=== PATIENT | female | born 1995 ===

== ENCOUNTER 2017-11-28 08:06 | Emergency (ER) | payer OTHER ==
[2017-11-28 08:17] VITALS: RESP 18; TEMP 98
[2017-11-28] MEDS ORDERED: Albuterol-Ipratrop 3 mg / 0.5 (3 ml) UD IH STA ×2 (08:42→09:56)
[2017-11-28] MEDS ORDERED: guaiFENesin 200 mg/10 ml Syrup UD PO PRN (08:42)
--- NOTE | 2017-11-28 08:52 | ED PDOC ---
Arrival/HPI - History of Present Illness Time/Duration: < week Symptom Onset: Sudden Symptom Course: Unchanged Activities at Onset: Rest <Roger Colon - Last Filed: 11/28/17 17:11> <Bryan Hartmann - Last Filed: 11/28/17 17:52> - General Chief Complaint: Cough, Cold, Congestion Time Seen by Provider: 11/28/17 08:08 - History of Present Illness Narrative History of Present Illness (Text): 11/28/17 08:45 PGY-[address] Hartmann Miss Bart Hudson is a 22 year old female with PMHx asthma who presents to ED with shortness of breath and cough. Patient has been experiencing symptoms for about 3 days and her shortness of breath has been getting worse. In addition to shortness of breath, the patient is having some mild chest pain and productive cough with yellow/green mucous. Typically she experiences symptoms of asthma infrequently, about once per month, for which she uses a rescue albuterol inhaler. She did use her inhaler yesterday which provided limited relief of her symptoms, and she did not have her inhaler with her to use today. The patient has not experienced any fevers or chills. Her symptoms are exacerbated by physical activity and are worse at night and lying flat. She denies any radiation of chest pain to arm or jaw. Pt does not smoke. Pt denies headache, dizziness, abdominal pain, nausea, vomiting. (Roger Colon) Past Medical History - Provider Review Nursing Documentation Reviewed: Yes - Pulmonary Hx Asthma: Yes - Psychiatric Hx Substance Use: No - Surgical History Hx Section: Yes (x1) Hx Tonsillectomy: Yes <Roger Colon - Last Filed: 11/28/17 17:11> Family/Social History - Physician Review Nursing Documentation Reviewed: Yes Family/Social History: No Known Family HX Smoking Status: Never Smoked Hx Alcohol Use: Yes Frequency of alcohol use: Socially Hx Substance Use: No <Roger Colon - Last Filed: 11/28/17 17:11> Allergies/Home Meds <Roger Colon - Last Filed: 11/28/17 17:11> <Bryan Hartmann - Last Filed: 11/28/17 17:52> Allergies/Adverse Reactions: Allergies No Known Allergies Allergy (Verified 11/28/17 08:14) Review of Systems - Physician Review All systems were reviewed & negative as marked: Yes - Review of Systems Constitutional: Normal. absent: Fatigue, Fevers Eyes: Normal. absent: Vision Changes, Photophobia ENT: Rhinorrhea. absent: Sore Throat, Sinus Congestion Respiratory: SOB, Cough, Sputum (+cough with green/yellow sputum) Cardiovascular: Chest Pain (+chest pain a/w cough) Gastrointestinal: Normal. absent: Abdominal Pain, Constipation, Diarrhea, Nausea, Vomiting Musculoskeletal: Normal. absent: Arthralgias, Back Pain Skin: Normal. absent: Rash, Pruritis Neurological: Normal. absent: Headache, Dizziness Psychiatric: Normal. absent: Anxiety, Depression <Roger Colon - Last Filed: 11/28/17 17:11> Physical Exam Vital Signs Reviewed: Yes Temperature: Afebrile Blood Pressure: Normal Pulse: Regular Respiratory Rate: Normal Appearance: Positive for: Well-Appearing. No: Non-Toxic Pain Distress: Mild Mental Status: Positive for: Alert and Oriented X 3 - Systems Exam Head: Present: Atraumatic, Normocephalic Pupils: Present: PERRL Extroacular Muscles: Present: EOMI. No: Gaze Palsy Conjunctiva: Present: Normal. No: Injected, Icteric Mouth: Present: Moist Mucous Membranes, Normal Lips, Normal Tounge, Normal Teeth. No: Dry, Drooling Pharnyx: Present: Normal. No: ERYTHEMA, EXUDATE, TONSILS ENLARGED, Peritonsilar Swelling, Uvular Deviation, Soft Palate/Uvular Edema Nose (External): Present: Atraumatic. No: Abrasion, Contusion Neck: Present: Normal Range of Motion. No: JVD Respiratory/Chest: Present: Clear to Auscultation, Decreased Breath Sounds. No : Respiratory Distress, Accessory Muscle Use, Wheezes, Rhonchi Cardiovascular: Present: Regular Rate and Rhythm, Normal S1, S2, Peripheal Pulses Present. No: Murmurs, Tachycardic Abdomen: Present: Tenderness, Normal Bowel Sounds. No: Distention, Rebound, Guarding Upper Extremity: Present: Normal Inspection, Normal ROM, NORMAL PULSES. No: Cyanosis, Edema, Tenderness, Swelling Lower Extremity: Present: Normal Inspection, NORMAL PULSES. No: Edema, Cyanosis , Erythema Neurological: Present: GCS=15, CN II-XII Intact, Speech Normal, Motor Func Grossly Intact Skin: Present: Warm, Dry, Normal Color. No: Rashes Psychiatric: Present: Alert, Oriented x 3 <Roger Colon - Last Filed: 11/28/17 17:11> Vital Signs Temp Pulse Resp BP Pulse Ox 11/28/17 11:02 78 18 122/79 99 11/28/17 10:07 78 18 123/73 98 11/28/17 08:14 98 F 77 18 122/62 100 Medical Decision Making - RAD Interpretation Hadoop Developer: ED Physician <Roger Colon - Last Filed: 11/28/17 17:11> <Bryan Hartmann - Last Filed: 11/28/17 17:52> ED Course and Treatment: 11/28/17 09:02 Upper respiratory infection with asthma exacerbation * Duonebs 1mL IH x1 stat * Guafenisin 200 mg PO stat * Motrin 200 mg PO stat 11/28/17 17:12 * Pt was reexamined following treatment and symptoms had significantly improved , breath sounds clear (Roger Colon) 11/28/17 09:18 Patient is a 22 year old female presenting to ED complaining of shortness of breath and cough Patient Seen With Resident: In agreement with resident note which contains more details about the patient. Patient was seen and evaluated with resident. Came up with plan and treatment together. Patient's was treated with duonebs, robitussion, motrin and prednisone. Patient' s CXR is normal. Patient improved and no longer has shortness of breathe. She walked around with dyspnea. Will discharge her home with meds and f/u with pmd. (Bryan Hartmann) - RAD Interpretation Narrative RAD Interpretations (Text): 11/28/17 10:35 CXR: No active pulmonary disease (Roger Colon) Radiology Orders: 11/28/17 09:53 CHEST TWO VIEWS (PA/LAT) [RAD] Stat - Medication Orders Current Medication Orders: Discontinued Medications Albuterol/Ipratropium (Duoneb 3 Mg/0.5 Mg (3 Ml) Ud) 3 ml IH STAT STA Stop: 11/28/17 08:43 Last Admin: 11/28/17 09:02 Dose: 3 ml Albuterol/Ipratropium (Duoneb 3 Mg/0.5 Mg (3 Ml) Ud) 3 ml IH STAT STA Stop: 11/28/17 09:57 Last Admin: 11/28/17 10:01 Dose: 3 ml Guaifenesin (Robitussin) 200 mg PO Q4H PRN PRN Reason: Cough and congestion Guaifenesin (Robitussin) 200 mg PO STAT STA Stop: 11/28/17 08:56 Last Admin: 11/28/17 09:02 Dose: 200 mg Ibuprofen (Motrin Tab) 400 mg PO STAT STA Stop: 11/28/17 08:43 Last Admin: 11/28/17 09:02 Dose: 400 mg MAR Pain/Vitals Document 11/28/17 09:02 EWO (Rec: 11/28/17 09:02 EWO [id number]) Pain Reassessment Is This A Pain ReAssessment? No Prednisone (Prednisone Tab) 60 mg PO STAT ONE Stop: 11/28/17 09:56 Last Admin: 11/28/17 10:01 Dose: 60 mg <Roger Colon - Last Filed: 11/28/17 17:11> - PA / UTILITY PLANT OPERATIVE / Resident Statement MD/DO has reviewed & agrees with the documentation as recorded. MD/DO has examined the patient and agrees with the treatment plan. - Scribe Statement The provider has reviewed the documentation as recorded by the Scribe <Bryan Hartmann - Last Filed: 11/28/17 17:52> - Scribe Statement Christie Cavanaugh All medical record entries made by the Scribe were at my direction and personally dictated by me. I have reviewed the chart and agree that the record accurately reflects my personal performance of the history, physical exam, medical decision making, and the department course for this patient. I have also personally directed, reviewed, and agree with the discharge instructions and disposition. (Bryan Hartmann) Disposition/Present on Arrival - Present on Arrival Any Indicators Present on Arrival: No History of DVT/PE: No History of Uncontrolled Diabetes: No Urinary Catheter: No History of Decub. Ulcer: No History Surgical Site Infection Following: None - Disposition Have Diagnosis and Disposition been Completed?: Yes Disposition Time: 10:49 <Roger Colon - Last Filed: 11/28/17 17:11> <Bryan Hartmann - Last Filed: 11/28/17 17:52> - Disposition Diagnosis: Asthma exacerbation, Upper respiratory infection Disposition: HOME/ ROUTINE Condition: IMPROVED Additional Instructions: ELVIRA HUDSON, thank you for letting us take care of you today. Your provider was Bryan Hartmann DO and you were treated for Asthma, Bronchitis. The emergency medical care you received today was directed at your acute symptoms. If you were prescribed any medication, please fill it and take as directed. It may take several days for your symptoms to resolve. Return to the Emergency Department if your symptoms worsen, do not improve, or if you have any other problems. Please contact your doctor or call one of the physicians/clinics you have been referred to that are listed on the Patient Visit Information form that is included in your discharge packet. Bring any paperwork you were given at discharge with you along with any medications you are taking to your follow up visit. Our treatment cannot replace ongoing medical care by a primary care provider outside of the emergency department. Thank you for allowing the [facility] team to be part of your care today. If you had an X-Ray or CT scan: A Radiologist will review the ED reading if any change in treatment is needed we will contact you. If you had a blood, urine, or wound culture: It will take several days for the results, if any change in treatment is needed we will contact you. If you had an STI test: It will take 48 hours for the results. Please call after 1 week if you have not heard back. Prescriptions: Albuterol HFA [Ventolin HFA 90 mcg/actuation (8 g)] 0.09 mg IH Q6 #2 puff predniSONE [predniSONE Tab] 40 mg PO DAILY 4 Days #4 tab Referrals: Clinic,Med Surg [Non-Staff] - Follow up with primary Cintia Mancilla MD [Medical Doctor] - Follow up with primary Forms: [employer] (Somali), WORK NOTE
[2017-11-28] MEDS ORDERED: guaiFENesin 200 mg/10 ml Syrup UD PO STA (08:55)
[2017-11-28 11:01] VITALS: PULSE 78
[2017-11-28 11:03] VITALS: BP 122/79; O2SAT 99
== END 2017-11-28 11:02 | disposition home or self-care (01) ==
LOC: ED 08:06
DX: J06.9 Acute upper respiratory infection, unspecified (principal); J45.901 Unspecified asthma with (acute) exacerbation

== ENCOUNTER 2018-08-22 23:46 | Emergency (ER) | payer SELFPAY ==
[2018-08-22 23:59] VITALS: O2SAT 100
[2018-08-23] MEDS ORDERED: Albuterol-Ipratrop 3 mg / 0.5 (3 ml) UD IH STA ×2 (00:39→01:22)
[2018-08-23 00:57] VITALS: RESP 18
--- NOTE | 2018-08-23 01:28 | ED PDOC ---
Arrival/HPI - General Historian: Patient - History of Present Illness Narrative History of Present Illness (Text): 08/23/18 01:22 23-year-old female with a history of asthma presents today complaining of shortness of breath since last night. Patient states symptoms worsened today. Patient states she used her nebulizer at home without improvement. She is complaining of slight nasal congestion. Denies sore throat. Denies fevers or chills. Denies abdominal pain. Denies chest pain. Patient states she just feels short of breath. Family member at bedside states that the patient was audibly wheezing earlier prior to the nebulizer. Patient denies sick contacts. She denies recent travel. She denies a history of smoking. She denies a history of control pills. Patient denies a history of sedentary lifestyle. Patient denies calf pain. <Kay Ann - Last Filed: 08/23/18 02:29> <Santy Livingston - Last Filed: 08/23/18 02:30> - General Chief Complaint: Shortness Of Breath Time Seen by Provider: 08/23/18 00:11 Past Medical History - Provider Review Nursing Documentation Reviewed: Yes - Travel History Have you recently traveled outside [place] w/in the past 3 mons?: No - Infectious Disease Hx of Infectious Diseases: None - Pulmonary Hx Asthma: Yes - Psychiatric Hx Substance Use: No - Surgical History Hx Section: Yes (x1) Hx Tonsillectomy: Yes <Kay Ann - Last Filed: 08/23/18 02:29> Family/Social History - Physician Review Nursing Documentation Reviewed: Yes Family/Social History: Unknown Family HX Smoking Status: Never Smoked Hx Alcohol Use: Yes Hx Substance Use: No <Kay Ann - Last Filed: 08/23/18 02:29> Allergies/Home Meds <Kay Ann - Last Filed: 08/23/18 02:29> <Santy Livingston - Last Filed: 08/23/18 02:30> Allergies/Adverse Reactions: Allergies No Known Allergies Allergy (Verified 11/28/17 08:14) Review of Systems - Review of Systems Constitutional: absent: Fatigue, Fevers ENT: Sinus Congestion. absent: Sore Throat Respiratory: SOB, Cough, Wheezing Cardiovascular: absent: Chest Pain, Palpitations Gastrointestinal: absent: Abdominal Pain, Constipation, Diarrhea, Nausea, Vomiting Genitourinary Female: absent: Dysuria, Frequency, Hematuria Musculoskeletal: absent: Arthralgias, Back Pain, Neck Pain Skin: absent: Rash, Pruritis Neurological: absent: Headache, Dizziness Psychiatric: absent: Anxiety, Depression, Suicidal Ideation <Kay Ann - Last Filed: 08/23/18 02:29> Physical Exam Vital Signs Reviewed: Yes Vital Signs Temp Pulse Resp BP Pulse Ox 08/23/18 00:00 18 100 08/22/18 23:55 98.8 F 80 16 121/70 100 Temperature: Afebrile Blood Pressure: Normal Pulse: Regular Respiratory Rate: Normal Appearance: Positive for: Well-Appearing, Non-Toxic, Comfortable Pain Distress: None Mental Status: Positive for: Alert and Oriented X 3 - Systems Exam Head: Present: Atraumatic Mouth: Present: Moist Mucous Membranes Neck: Present: Normal Range of Motion Respiratory/Chest: Present: Clear to Auscultation, Good Air Exchange. No: Respiratory Distress, Accessory Muscle Use Cardiovascular: Present: Regular Rate and Rhythm, Normal S1, S2. No: Murmurs Abdomen: No: Tenderness, Distention, Rebound, Guarding Back: Present: Normal Inspection Upper Extremity: Present: Normal ROM Lower Extremity: Present: Normal ROM. No: Edema, CALF TENDERNESS Neurological: Present: GCS=15, Speech Normal Skin: Present: Warm, Dry, Normal Color. No: Rashes Psychiatric: Present: Alert, Oriented x 3 <Kay Ann - Last Filed: 08/23/18 02:29> Vital Signs Temp Pulse Resp BP Pulse Ox 08/23/18 01:43 100 H 18 100 08/23/18 00:00 18 100 08/22/18 23:55 98.8 F 80 16 121/70 100 <Santy Livingston - Last Filed: 08/23/18 02:30> Medical Decision Making ED Course and Treatment: 08/23/18 01:24 Patient is nontoxic well-appearing in no distress with stable vital signs. Lungs are clear to auscultation bilaterally. No wheezing noted Patient given a DuoNeb. Patient reassessment: Lungs are clear to auscultation bilaterally. Patient is saturating 100% on room air. Patient states that she still feels short of breath. labs pending Patient given second DuoNeb and Solu-Medrol 125 IV Patient reassessment: pt feeling much better after 2nd treatment and steroids. EKG: NSR at 99 b/m no st elevations; normal axis, normal intervals. CBC: Within normal limits CMP within normal limits D-dimer within normal limits all results discussed in depth with the patient. Patient was advised to follow-up with a primary care physician Within the next 2 days. Patient was advised to take medications as prescribed and return immediately if symptoms worsen persist or if new concerning symptoms develop. Patient verbalizes understanding of discharge instructions and need for immediate followup. All aspects of this case were discussed the attending of record. impression; asthma prednisone daily x 4 days use albuterol nebulizer 3 times daily as needed for cough/asthma increase fluids follow up with the primary care physician within the next 2 days. return immediately if symptoms worsen,persist or if new symptoms develop. Reassessment Condition: Re-examined, Improved - RAD Interpretation Radiology Orders: 08/23/18 00:39 CHEST PORTABLE [RAD] Stat - Medication Orders Current Medication Orders: Discontinued Medications Albuterol/Ipratropium (Duoneb 3 Mg/0.5 Mg (3 Ml) Ud) 3 ml IH STAT STA Stop: 08/23/18 00:40 Last Admin: 08/23/18 00:54 Dose: 3 ml <Kay Ann - Last Filed: 08/23/18 02:29> - Lab Interpretations Lab Results: D-Dimer, Quantitative 232 ng/mlDDU (0-243) 08/23/18 01:32 Total Bilirubin 0.3 mg/dL (0.2-1.3) 08/23/18 01:32 AST 38 U/L (14-36) H 08/23/18 01:32 ALT 22 U/L (7-56) 08/23/18 01:32 Alkaline Phosphatase 77 U/L (38-126) 08/23/18 01:32 Total Protein 7.5 g/dL (5.8-8.3) 08/23/18 01:32 Albumin 4.1 g/dL (3.0-4.8) 08/23/18 01:32 Globulin 3.3 gm/dL 08/23/18 01:32 Albumin/Globulin Ratio 1.2 (1.1-1.8) 08/23/18 01:32 - RAD Interpretation Radiology Orders: 08/23/18 00:39 CHEST PORTABLE [RAD] Stat - Medication Orders Current Medication Orders: Discontinued Medications Albuterol/Ipratropium (Duoneb 3 Mg/0.5 Mg (3 Ml) Ud) 3 ml IH STAT STA Stop: 08/23/18 00:40 Last Admin: 08/23/18 00:54 Dose: 3 ml Albuterol/Ipratropium (Duoneb 3 Mg/0.5 Mg (3 Ml) Ud) 3 ml IH STAT STA Stop: 08/23/18 01:23 Last Admin: 08/23/18 01:42 Dose: 3 ml Methylprednisolone (Solu-Medrol) 125 mg IVP STAT STA Stop: 08/23/18 01:23 Last Admin: 08/23/18 01:37 Dose: 125 mg IVP Administration Document 08/23/18 01:37 BERTHA (Rec: 08/23/18 01:42 BERTHA [id number]) Charges for Administration # of IVP Administrations 1 <Santy Livingston - Last Filed: 08/23/18 02:30> - PA / TANNING WHEEL FILLER / Resident Statement / has reviewed & agrees with the documentation as recorded. <Santy Livingston - Last Filed: 08/23/18 02:30> Disposition/Present on Arrival - Present on Arrival Any Indicators Present on Arrival: No History of DVT/PE: No History of Uncontrolled Diabetes: No Urinary Catheter: No History of Decub. Ulcer: No History Surgical Site Infection Following: None - Disposition Have Diagnosis and Disposition been Completed?: Yes Disposition Time: 02:15 Patient Plan: Discharge <Kay Ann - Last Filed: 08/23/18 02:29> <Santy Livingston - Last Filed: 08/23/18 02:30> - Disposition Diagnosis: Asthma Disposition: HOME/ ROUTINE Patient Problems: Current Active Problems Problem Status Onset Asthma Acute Condition: GOOD Discharge Instructions (ExitCare): Asthma, Adult (DC) Additional Instructions: prednisone daily x 4 days use albuterol nebulizer 3 times daily as needed for cough/asthma increase fluids follow up with the primary care physician within the next 2 days. return immediately if symptoms worsen,persist or if new symptoms develop. Prescriptions: Albuterol HFA [Ventolin HFA 90 mcg/actuation (8 g)] 2 puff IH [id number] PRN #1 inhaler PRN Reason: Cough Albuterol 0.083% [Albuterol 0.083% Inhal Racheal (2.5 mg/3 ml) UD] 1 vial IH TID PRN #1 packet PRN Reason: Cough predniSONE [predniSONE Tab] 2 tab PO DAILY #8 tab Referrals: Cintia Mancilla MD [Medical Doctor] - Follow up with primary [employer] [Outside] - Follow up with primary Forms: [employer] (Telugu), WORK NOTE
[2018-08-23 02:20] LABS: BASO # 0.02 K/mm3 (0.0-2.0); BASO % 0.3 % (0.0-3.0); EOS # 0.5 (0.0-0.7); EOS % 6.9 % (1.5-5.0); HEMOGLOBIN 12.5 g/dL (12.0-16.0); LYMPH # 2.2 (1.2-3.4); LYMPH % 31.4 % (22.0-35.0); MEAN CORPUSCULAR HEMOGLOBIN 25.9 pg (25.0-35.0); MEAN PLATELET VOLUME 8.5 fl (7.0-11.0); MONO # 1.1 (0.1-0.6); MONO % 15.6 % (1.0-6.0); RBC 4.83 10^6/uL (3.5-6.1); RED CELL DISTRIBUTION WIDTH 13.6 % (11.5-14.5); WHITE BLOOD COUNT 6.9 10^3/uL (4.5-11.0)
[2018-08-23 02:21] LABS: ALB/GLOB RATIO 1.2 (1.1-1.8); ALBUMIN 4.1 g/dL (3.0-4.8); ALT/SGPT 22 U/L (7-56); AST/SGOT 38 U/L (14-36); BLOOD UREA NITROGEN 12 mg/dL (7-21); GFR NON-AFRICAN AMERICAN > 60
[2018-08-23 02:33] VITALS: BP 118/72; PULSE 90
[2018-08-23 02:34] VITALS: TEMP 98.5
--- NOTE | 2018-08-23 10:03 | CARD ---
APPROVED REPORT Date of service: 08/23/2018 EKG Measurement Heart [id number] <Conclusion> Normal sinus rhythm Normal ECG
--- NOTE | 2018-08-23 10:14 | RAD ---
Date of service: 08/23/2018 HISTORY: cough/asthma COMPARISON: 11/28/2017 TECHNIQUE: 1 view obtained. FINDINGS: LUNGS: No active pulmonary disease. PLEURA: No significant pleural effusion identified, no pneumothorax apparent. CARDIOVASCULAR: No aortic atherosclerotic calcification present. Normal cardiac size. No pulmonary vascular congestion. OSSEOUS STRUCTURES: No significant abnormalities. VISUALIZED UPPER ABDOMEN: Normal. OTHER FINDINGS: None. IMPRESSION: No active disease.
== END 2018-08-23 02:30 | disposition home or self-care (01) ==
LOC: ED 23:46
DX: J45.909 Unspecified asthma, uncomplicated (principal)
CPT/HCPCS: 71045; 80053; 81025; 85025; 85378; 93005; 96374; 99284; J2930